=== PATIENT | male | born 1955 | race Caucasian/White ===

== ENCOUNTER → 2018-01-10 | Outpatient (CLI) | payer BC ==
[~2018-01-10] MED LIST: AMLO5; CARV3.125 PO; CLON.3TP TOP; DOXA1 PO; ESCI5 PO; FOSI10; FOSI10 PO; Ibuprofen Ib200 MG; LORA.5 PO; METO25ER; MULTI VITAMIN1 EACH; SPIR25; Sulfamethoxazo1 EAC4 PO
== END ==
LOC: LAB 16:08 → LAB SHORT 16:08
DX: N39.0 Urinary tract infection, site not specified (principal)
CPT/HCPCS: 87086

== ENCOUNTER 2018-01-13 17:15 | Emergency (ER) | payer BC ==
[~2018-01-13] VITALS: Ht 167.6 cm; Wt 64.4 kg
[~2018-01-13 17:15] MED LIST changes: -CARV3.125 PO; -CLON.3TP TOP; -DOXA1 PO; -ESCI5 PO; -FOSI10 PO; -LORA.5 PO; -Sulfamethoxazo1 EAC4 PO
[2018-01-13 18:32] LABS: BASOPHILS ABSOLUTE AUTO 0.02 K/mm3 (0.00-0.23); BASOPHILS PERCENT AUTO 0 % (0-2); EOSINOPHILS PERCENT AUTO 1 % (0-6); Hematocrit 39.5 % (37.0-53.0); Hemoglobin 13.3 g/dL (13.5-17.5); IMMATURE GRAN ABSOLUTE AUTO 0.02 K/mm3 (0.00-0.10); IMMATURE GRAN PERCENT AUTO 0 % (0-1); LYMPHOCYTES ABSOLUTE AUTO 1.35 K/mm3 (0.84-5.20); LYMPHOCYTES PERCENT AUTO 17 % (21-46); MONOCYTES ABSOLUTE AUTO 0.58 K/mm3 (0.16-1.47); MONOCYTES PERCENT AUTO 7 % (4-13); Mean Corpuscular HGB 30.6 pg (26.0-34.0); Mean Corpuscular HGB Conc 33.7 g/dL (31.5-36.5); Mean Corpuscular Volume 91 fL (80-100); Mean Platelet Volume 8.7 fL (9.1-12.4); NEUTROPHILS ABSOLUTE AUTO 6.01 K/mm3 (1.96-9.15); NEUTROPHILS PERCENT AUTO 75 % (41-73); Platelet Count 347 K/mm3 (150-400); RDW Coefficient Variation 12.1 % (11.7-14.2); RDW Standard Deviation 40.2 fL (35.1-46.3); Red Blood Cell Count 4.34 M/mm3 (4.30-5.90); White Blood Cell Count 8.08 K/mm3 (4.00-11.30)
[2018-01-13] MEDS ORDERED: DOXA1 PO (18:35)
[2018-01-13] MEDS ORDERED: CARV3.125 PO (18:36)
[2018-01-13] MEDS ORDERED: Sulfamethoxazo1 EAC4 PO (18:36)
[2018-01-13 18:37] LABS: Alanine Aminotransfer (ALT/SGP 20 U/L (12-78); Albumin, Blood 3.6 g/dL (3.4-5.0); Albumin/Globulin Ratio 1.1 (0.8-1.8); Alk Phos 58 U/L (50-136); Anion Gap 6 mmol/L (6-16); Aspartate Aminotrans (AST/SGOT 12 U/L (12-37); Bilirubin, Total 0.4 mg/dL (0.1-1.0); Blood Urea Nitrogen 15 mg/dL (8-24); Bun/Creatinine Ratio 12.8 (12.0-20.0); CO2, Blood 29 mmol/L (21-32); Calcium, Blood 8.2 mg/dL (8.5-10.1); Chloride, Blood 106 mmol/L (98-108); Creatinine, Blood 1.17 mg/dL (0.60-1.20); Globulin, Blood 3.4 g/dL (2.2-4.0); Glomerular Filtration Rate >60 (60-); Glucose, Blood 135 mg/dL (70-99); Potassium, Blood 3.9 mmol/L (3.5-5.5); Sodium, Blood 141 mmol/L (136-145)
[2018-01-13] MEDS ORDERED: FOSI10 PO (18:37)
[2018-01-13] MEDS ORDERED: LORA.5 PO (18:37)
[2018-01-13] MEDS ORDERED: ESCI5 PO (18:37)
[2018-01-13] MEDS ORDERED: CLON.3TP TOP (18:37)
== END 2018-01-13 20:30 | disposition home or self-care (01) ==
LOC: ER 17:15
PROVIDERS: Emergency Medicine
DX: I10 Essential (primary) hypertension (principal); N41.9 Inflammatory disease of prostate, unspecified; Z79.899 Other long term (current) drug therapy
CPT/HCPCS: 36415; 51798; 80053; 85025; 93005; 93010; 96374; 99283-25; J0360

== ENCOUNTER → 2018-04-09 | Outpatient (CLI) | payer BC ==
[~2018-04-09] MED LIST changes: +CARV3.125 PO; +CLON.3TP TOP; +DOXA1 PO; +ESCI5 PO; +FOSI10 PO; +LORA.5 PO; +Sulfamethoxazo1 EAC4 PO
[2018-04-18 12:08] LABS: CA OXALATE DIHYDRATE 10 % (.); CA OXALATE MONOHYDR. 85 % (.); COLOR Brown (.); COMMENT Note: (.); WEIGHT 196.3 mg (.)
== END | disposition home or self-care (01) ==
LOC: LAB SHORT 15:54 → LAB 15:54
PROVIDERS: Family Medicine
DX: N20.0 Calculus of kidney (principal)
CPT/HCPCS: 82360